=== PATIENT | female | born 1990 | race Two or more races ===

== ENCOUNTER 2020-10-19 19:51 | Emergency (ER) | payer MEDICAID ==
[~2020-10-19] VITALS: Ht 172.7 cm; Wt 64.0 kg
[2020-10-19 19:55] VITALS: BP 119/83
[2020-10-19] MEDS ORDERED: BACITRACIN ZINC OINT UDPKT TOP ONE ×2 (21:00)
[2020-10-19] MEDS ORDERED: IBUPROFEN 600MG TABLET PO ONE (21:00)
[2020-10-19] MEDS ORDERED: LIDOCAINE 1%/EPI 1:100,000 10 ML VIAL IJ ONE (21:00)
[2020-10-19] MEDS ORDERED: LIDOCAINE HCL/EPINEPHRINE 1%-EPI 1:100,000 20 ML VIAL INFIL NR (21:15)
== END 2020-10-19 22:29 | disposition home or self-care (01) ==
LOC: ER 19:51
DX: S91.012A Laceration without foreign body, left ankle, initial encounter (principal); W01.110A Fall on same level from slipping, tripping and stumbling with subsequent striking against sharp glass, initial encounter; Y93.41 Activity, dancing; Y92.89 Other specified places as the place of occurrence of the external cause
CPT/HCPCS: 12001; 73600; 81025; 99283; J3490; Z7610

== ENCOUNTER 2022-08-06 10:51 | Observation (INO) | payer MEDICAID | END 2022-08-06 11:40 | disposition home or self-care (01) | LOC: 8 EST LDRP 10:51 | PROVIDERS: ADMIT Obstetrics & Gynecology; ATTEND Obstetrics & Gynecology | DX: O34.219 Maternal care for unspecified type scar from previous cesarean delivery (principal); O36.8330 Maternal care for abnormalities of the fetal heart rate or rhythm, third trimester, not applicable or unspecified; Z3A.38 38 weeks gestation of pregnancy | CPT/HCPCS: 59025; G0378; 99281 ==

== ENCOUNTER 2023-09-08 13:04 | Emergency (ER) | payer MEDICAID, OTHER ==
[~2023-09-08] VITALS: Ht 167.6 cm; Wt 65.0 kg
[2023-09-08 13:25] VITALS: BP 124/88; PULSE 90; RESP 20; TEMP 98.4; O2SAT 100
== END 2023-09-08 15:16 | disposition home or self-care (01) ==
LOC: ER 13:04
DX: S71.112D Laceration without foreign body, left thigh, subsequent encounter (principal); Z98.890 Other specified postprocedural states; X58.XXXD Exposure to other specified factors, subsequent encounter
CPT/HCPCS: 99281; Z7610